=== PATIENT | female | born 1950 | race Two or more races ===

== ENCOUNTER 2016-06-25 07:19 | Inpatient (IN) | payer MEDICARE, OTHER ==
[~2016-06-25] VITALS: Ht 160 cm; Wt 74.8 kg
[2016-06-25 08:18] LABS: BASOPHILS % (AUTO) 0.3 % (0.0-2.0); DIFF TOTAL % 100 %; EOSINOPHILS % (AUTO) 0.1 % (0.0-6.0); HEMATOCRIT 38 % (33-45); HEMOGLOBIN 12.2 g/dL (11.5-14.8); LYMPHOCYTES # (AUTO) 1.2 /CMM (0.8-4.8); LYMPHOCYTES % (AUTO) 16.3 % (20.0-44.0); MEAN CORPUSCULAR HEMOGLOBIN 25 PG (26.0-33.0); MEAN CORPUSCULAR HGB CONC 32 g/dl (31.0-36.0); MEAN CORPUSCULAR VOLUME 79 fL (82-100); MONOCYTES # (AUTO) 0.8 /CMM (0.1-1.30); NEUTROPHILS # (AUTO) 5.6 /CMM (1.8-8.9); NEUTROPHILS % (AUTO) 73.3 % (43.0-81.0); PLATELET COUNT (AUTO) 244 /CMM (150-450); RED BLOOD CELL COUNT(AUTO) 4.81 MIL/uL (4.0-5.2); WHITE BLOOD COUNT (AUTO) 7.6 K/uL (4.3-11.0)
[2016-06-25 08:30] LABS: ALANINE AMINOTRANSFERASE 57 U/L (12-78); ALBUMIN 3.8 g/dL (3.4-5.0); ANION GAP 13 (5-14); ASPARTATE AMINOTRANSFERASE 47 U/L (15-37); BILIRUBIN,DIRECT 0.1 mg/dL (0.0-0.2); BILIRUBIN,TOTAL 0.3 mg/dL (0.2-1.0); CALCIUM, SERUM 8.6 mg/dL (8.5-10.1); CARBON DIOXIDE 28 mmol/L (21-32); CHLORIDE 97 mmol/L (98-107); CREATININE 0.8 mg/dL (0.6-1.3); GFR 73 mL/min (>60); GLUCOSE 175 mg/dL (74-106); INDIRECT BILIRUBIN 0.2 mg/dL (0.0-1.1); SODIUM SERUM 135 mmol/L (136-145); TOTAL PROTEIN, SERUM 7.8 g/dL (6.4-8.2); TROPONIN I < 0.017 ng/mL (0.00-0.056); UREA NITROGEN, BLOOD 16 mg/dL (7-18)
[2016-06-25 08:32] LABS: INR 1.01 (0.87-1.13); PROTHROMBIN TIME 10.9 SECS (9.5-12.7)
[2016-06-25 08:35] LABS: POTASSIUM 2.8 mmol/L (3.5-5.1)
[2016-06-25] MEDS ORDERED: POTASSIUM CHLORIDE 20 MEQ TAB.PRT.SR PO ONE ×6 (09:58→17:03)
[2016-06-25] MEDS ORDERED: GLIP10TA11 PO (10:06)
[2016-06-25] MEDS ORDERED: HYDR25TA4 PO (10:06)
[2016-06-25] MEDS ORDERED: PRED10TA PO (10:06)
[2016-06-25] MEDS ORDERED: METF1000 PO (10:06)
[2016-06-25] MEDS ORDERED: IV NS 0.9% 1,000 ML IV PRN (10:21)
[2016-06-25] MEDS ORDERED: ONDANSETRON HCL/PF 4 MG/2 ML VIAL IVP PRN (10:30)
[2016-06-25] MEDS ORDERED: ZOLPIDEM TARTRATE 5 MG TABLET PO PRN (10:30)
[2016-06-25] MEDS ORDERED: ACETAMINOPHEN 325 MG TABLET PO PRN (10:30)
[2016-06-25] MEDS ORDERED: HYDROCODONE/APAP 5/325MG 1 EACH TABLET PO PRN (10:30)
[2016-06-25] MEDS ORDERED: MAGNESIUM HYDROXIDE 30 ML UDC PO PRN (10:30)
[2016-06-25] MEDS ORDERED: MAG HYDROX/AL HYDROX/SIMETH 30 ML UDC PO PRN (10:30)
[2016-06-25] MEDS ORDERED: Z GUARD REMEDY 2 OZ OINT TP PRN (10:30)
[2016-06-25] MEDS ORDERED: glipiZIDE 10 MG TABLET PO ONE (11:00)
[2016-06-25] MEDS ORDERED: METFORMIN 500 MG TABLET ONE (11:49)
[2016-06-25] MEDS ORDERED: glipiZIDE 10 MG TABLET ONE (11:49)
[2016-06-25] MEDS ORDERED: HYDROCHLOROTHIAZIDE 25 MG TABLET ONE (11:50)
[2016-06-25] MEDS: HYDROCHLOROTHIAZIDE 25 MG TABLET PO SCH (12:03)
[2016-06-25] MEDS: POTASSIUM CHLORIDE 20 MEQ TAB.PRT.SR PO SCH ×3 (15:10→17:06)
[2016-06-25] MEDS: glipiZIDE 10 MG TABLET PO SCH ×2 (17:00→18:13)
[2016-06-25] MEDS: METFORMIN 500 MG TABLET PO SCH ×2 (17:00→18:13)
[2016-06-25 20:00] VITALS: BP 112/66
[2016-06-25 20:41] LABS: THYROID STIMULATING HORMONE 1.649 uIU/mL (0.358-3.74)
[2016-06-25] MEDS ORDERED: IV SET PRIMARY PUMP SET 1 EA INFUS.SET MC ONE (21:17)
[2016-06-26] VITALS: BP_SYST 114; BP_SYST 94; BP_DIAS 57; BP_DIAS 64
[2016-06-26 04:00] VITALS: BP 119/73
[2016-06-26 06:59] LABS: CALCIUM, SERUM 7.9 mg/dL (8.5-10.1); CREATININE 0.7 mg/dL (0.6-1.3); PHOSPHORUS 3.3 mg/dL (2.5-4.9); POTASSIUM 3.6 mmol/L (3.5-5.1)
[2016-06-26 07:06] LABS: THYROID STIMULATING HORMONE 1.758 uIU/mL (0.358-3.74)
[2016-06-26 07:12] LABS: BASOPHILS % (AUTO) 0.4 % (0.0-2.0); DIFF TOTAL % 100 %; EOSINOPHILS % (AUTO) 0.5 % (0.0-6.0); HEMATOCRIT 36 % (33-45); HEMOGLOBIN 11.2 g/dL (11.5-14.8); LYMPHOCYTES # (AUTO) 1.7 /CMM (0.8-4.8); MEAN CORPUSCULAR HEMOGLOBIN 25 PG (26.0-33.0); MEAN CORPUSCULAR HGB CONC 31 g/dl (31.0-36.0); MEAN CORPUSCULAR VOLUME 79 fL (82-100); MONOCYTES # (AUTO) 0.6 /CMM (0.1-1.30); MONOCYTES % (AUTO) 13.2 % (2.0-12.0); NEUTROPHILS # (AUTO) 2.1 /CMM (1.8-8.9); NEUTROPHILS % (AUTO) 46.9 % (43.0-81.0); PLATELET COUNT (AUTO) 208 /CMM (150-450); RED BLOOD CELL COUNT(AUTO) 4.54 MIL/uL (4.0-5.2); WHITE BLOOD COUNT (AUTO) 4.5 K/uL (4.3-11.0)
[2016-06-26] MEDS ORDERED: PANTOPRAZOLE 40 MG TABLET.DR PO SCH (07:30)
[2016-06-26 08:00] VITALS: BP 99/67
[2016-06-26] MEDS: METFORMIN 500 MG TABLET PO SCH (08:41)
[2016-06-26] MEDS: glipiZIDE 10 MG TABLET PO SCH (08:41)
[2016-06-26 08:42] VITALS: BP 119/73
[2016-06-26] MEDS: HYDROCHLOROTHIAZIDE 25 MG TABLET PO SCH (08:42)
[2016-06-26] MEDS ORDERED: METFORMIN XR 500 MG TAB.SR.24H PO SCH (09:00)
[2016-06-26] MEDS ORDERED: Nystatin PO (10:46)
[2016-06-26] MEDS ORDERED: NYSTATIN (PYXIS) 500,000 UNIT/5 ML ORAL.SUSP PO SCH (11:00)
[2016-06-26] MEDS ORDERED: IV NS 0.9% 1,000 ML IV PRN (13:06)
[2016-06-26] MEDS ORDERED: SOD FERRIC GLUC 125 MG in IV NS 0.9% 100 ML IV SCH (14:00)
== END 2016-06-26 15:42 | disposition home or self-care (01) | DRG 74 ==
LOC: ER 08:28 → TELE1 16:39 → EDBD 16:39
DX: G90.8 Other disorders of autonomic nervous system (principal); B37.0 Candidal stomatitis; R53.1 Weakness; E11.9 Type 2 diabetes mellitus without complications; E87.6 Hypokalemia; I10 Essential (primary) hypertension; D64.9 Anemia, unspecified; S00.03XA Contusion of scalp, initial encounter; X58.XXXA Exposure to other specified factors, initial encounter; Y93.9 Activity, unspecified; Y92.009 Unspecified place in unspecified non-institutional (private) residence as the place of occurrence of the external cause
CPT/HCPCS: 36415; 70450-TC; 71010-TC; 80048-TC; 80061-TC; 80076-TC; 82728-TC; 82746; 83540-TC; 83735-TC; 84100-TC; 84439-TC; 84443-TC; 84484-TC; 85025-TC; 85730-TC; 87081-TC; 93307-TC; 97001-TC; A4606; A6402; J2916; J7030; Z7610